=== PATIENT | male | born 1985 | race Two or more races ===

== ENCOUNTER 2016-03-15 18:28 | Outpatient (REF) | END 2016-03-15 19:52 | disposition home or self-care (01) | LOC: MLB 18:28 | DX: Z02.1 Encounter for pre-employment examination (principal); R76.11 Nonspecific reaction to tuberculin skin test without active tuberculosis ==

== ENCOUNTER 2017-02-14 08:29 | Outpatient (CLI) | payer OTHER ==
[2017-02-14 09:45] LABS: HEMATOCRIT 46.2 % (36-52); HEMOGLOBIN 15.3 g/dL (12.0-18.0); MEAN CORPUSCULAR HEMOGLOBIN 29 pg (27-31); MEAN CORPUSCULAR HGB CONC 33 g/dL (33-37); MEAN CORPUSCULAR VOLUME 87 fL (80-94); PLATELET COUNT (AUTO) 205 K/uL (140-450); RED CELL DISTRIBUTION WIDTH 12.1 % (11.6-13.7); WHITE BLOOD COUNT (AUTO) 4.4 K/uL (4.8-10.8)
[2017-02-14 10:16] LABS: ANION GAP 9.5 (8-16); CARBON DIOXIDE 29.8 mmol/L (21-32); CREATININE 1.1 mg/dL (0.7-1.3); POTASSIUM 4.3 mmol/L (3.5-5.1); THYROID STIMULATING HORMONE 1.49 uIU/mL (0.34-3.74); TOTAL BILIRUBIN 0.7 mg/dL (0.0-1.0)
[2017-02-14 10:17] LABS: EOSINOPHILS % (MANUAL) 5 % (0-4); LYMPHOCYTES % (MANUAL) 26 % (20-46); MONOCYTES % (MANUAL) 7 % (5-12)
== END 2017-02-14 20:05 | disposition home or self-care (01) ==
LOC: MLB 08:29
PROVIDERS: ATTEND Family Medicine
DX: L30.9 Dermatitis, unspecified (principal); D70.9 Neutropenia, unspecified
CPT/HCPCS: 36415; 80053; 84443; 85025

== ENCOUNTER 2017-08-31 08:25 | Outpatient (CLI) | payer OTHER ==
[2017-08-31 08:50] LABS: BASOPHILS % (AUTO) 0.5 % (0.0-2.0); EOSINOPHILS # (AUTO) 0.1 K/uL (0-0.4); EOSINOPHILS % (AUTO) 2.1 % (0.0-4.0); HEMATOCRIT 44.8 % (36-52); HEMOGLOBIN 15.2 g/dL (12.0-18.0); LYMPHOCYTES # (AUTO) 1.1 K/uL (2.0-11.5); LYMPHOCYTES % (AUTO) 23.3 % (20.5-51.1); MEAN CORPUSCULAR HEMOGLOBIN 29 pg (27-31); MEAN CORPUSCULAR HGB CONC 34 g/dL (33-37); MONOCYTES # (AUTO) 0.3 K/uL (0.8-1.0); MONOCYTES % (AUTO) 5.9 % (1.7-9.3); NEUTROPHILS # (AUTO) 3.3 K/uL (1.8-7.7); NEUTROPHILS % (AUTO) 68.2 % (42.2-75.2); PLATELET COUNT (AUTO) 215 K/uL (140-450); RED BLOOD CELL COUNT(AUTO) 5.15 MIL/uL (4.20-6.10); RED CELL DISTRIBUTION WIDTH 13.6 % (11.6-13.7); WHITE BLOOD COUNT (AUTO) 4.9 K/uL (4.8-10.8)
[2017-08-31 09:05] LABS: APPEARANCE,URINE CLEAR (CLEAR); BILIRUBIN,URINE NEGATIVE (NEGATIVE); BLOOD, URINE NEGATIVE (NEGATIVE); COLOR,URINE YELLOW (YELLOW); LEUKOCYTE ESTERASE ,URINE NEGATIVE (NEGATIVE); NITRITE, URINE NEGATIVE (NEGATIVE); UGLUCOSE NEGATIVE (NEGATIVE)
[2017-08-31 09:23] LABS: ALBUMIN 4.4 g/dL (3.4-5.0); ANION GAP 11.7 (8-16); CARBON DIOXIDE 25.4 mmol/L (21-32); CREATININE 1.6 mg/dL (0.7-1.3); POTASSIUM 4.1 mmol/L (3.5-5.1); THYROID STIMULATING HORMONE 1.91 uIU/mL (0.34-3.74); TOTAL BILIRUBIN 0.7 mg/dL (0.0-1.0)
[2017-08-31 09:24] LABS: CHOL/HDL RATIO 28.8 (1-4.5)
== END 2017-08-31 20:51 | disposition home or self-care (01) ==
LOC: MLB 08:25
PROVIDERS: ATTEND Family Medicine
DX: D70.9 Neutropenia, unspecified (principal); L30.9 Dermatitis, unspecified
CPT/HCPCS: 36415; 80053; 81003; 84443; 85025

== ENCOUNTER 2020-04-07 10:39 | Emergency (ER) | payer OTHER ==
[~2020-04-07] VITALS: Ht 180.3 cm; Wt 81.6 kg
[2020-04-07 10:45] VITALS: BP 123/67
--- NOTE | 2020-04-07 11:04 | NUR ---
Pt taken to radiology by wheelchair
--- NOTE | 2020-04-07 11:28 | NUR ---
35M no PMH c/o constant nonradiating 4/10 R foot pain since this morning. Reports he stepped on a sewing needle 3 days ago. Noticed redness and swelling this morning at site of needle puncture. Denies fever cough sob cp abdominal/urinary/bowel issues at this time. A&O x3, speaks in full clear sentences, follows commands. No AMU, respirations E/U. [place]. R lateral foot has a 2x4 cm red edeamtous area just below the ankle. Pending MD soto
[2020-04-07] MEDS ORDERED: LIDOCAINE/EPI 1% 1:100000 20 ML VIAL INJ ONE ×2 (11:37→11:40)
[2020-04-07] MEDS ORDERED: AMOX-999 PO (12:03)
--- NOTE | 2020-04-07 12:19 | NUR ---
Patient discharged with v/s stable. Written and verbal after care instructions given and explained. Patient verbalized understanding. Ambulatory with steady gait. All questions addressed prior to discharge. Advised to follow up with PMD. ID band removed
== END 2020-04-07 12:19 | disposition home or self-care (01) ==
LOC: MED 10:39
DX: S90.851A Superficial foreign body, right foot, initial encounter (principal); Z79.899 Other long term (current) drug therapy; X58.XXXA Exposure to other specified factors, initial encounter; Y93.89 Activity, other specified; Y92.89 Other specified places as the place of occurrence of the external cause; Y99.8 Other external cause status
CPT/HCPCS: 73630; 99284; J2001